=== PATIENT | female | born 1970 | race Caucasian/White ===

== ENCOUNTER → 2017-03-05 | Outpatient (CLI) | payer OTHER ==
--- NOTE | 2017-03-05 18:59 | REP ---
Left knee five views: There is Kurt-Stieda calcification medial to the medial femoral condyle. Mineralization and joint spaces are normal. There is no fracture or dislocation. There is no joint effusion. Impression: Kurt-Stieda calcification, otherwise negative left knee. Signed by Brednen Walker MD 03/05/2017 06:51 P
== END ==
LOC: M LRY 18:04
PROVIDERS: ATTEND Physician Assistant
DX: M25.462 Effusion, left knee (principal); M76.42 Tibial collateral bursitis [Pellegrini-Stieda], left leg

== ENCOUNTER → 2017-09-18 | Outpatient (CLI) | payer OTHER | LOC: M WHC 09:30 | DX: Z12.31 Encounter for screening mammogram for malignant neoplasm of breast (principal) ==

== ENCOUNTER → 2021-10-14 | Outpatient (CLI) | payer BC, OTHER | LOC: M RAD 12:22 | PROVIDERS: ATTEND Physician Assistant | DX: R22.1 Localized swelling, mass and lump, neck (principal) ==

== ENCOUNTER → 2024-07-20 | Outpatient (CLI) | payer BC | LOC: M WHC 12:24 | PROVIDERS: ATTEND Registered Nurse | DX: Z12.31 Encounter for screening mammogram for malignant neoplasm of breast (principal) ==